=== PATIENT | male | born 1945 | race Caucasian/White ===

== ENCOUNTER 2024-08-07 11:00 | Emergency (ER) | payer MEDICARE, OTHER ==
[~2024-08-07] VITALS: Ht 170.2 cm; Wt 65.8 kg
--- NOTE | 2024-08-07 11:08 | NUR ---
PT TO CT WITH RN AT THIS TIME
--- NOTE | 2024-08-07 11:15 | NUR ---
PT BACK FROM CT AT THIS TIME, SOC NEUROLOGIST DR. PAINTER SPEAKING TO PT.
--- NOTE | 2024-08-07 11:23 | EKG ---
[facility] Test Date: 2024-08-07 Test Time: 11:20:37 Pat Name: DOT CHEUNG Department: ED Room: Gender: M [employer] Rep[employer]r: [id number] : 1945 Requested By: JUANCARLOS ARCOS Order Number: [id number] Reading MD: Manuelito Trammell Measurements Intervals [place] Rate: 80 P: 25 VT: 194 QRS: -61 QRSD: 94 T: 34 QT: 362 QTc: 419 Interpretive Statements Sinus rhythm Left anterior fascicular block Cannot exclude prior anterior CO No previous ECG available for comparison Electronically Signed On 08-08-2024 12:48:12 WINCH RUNNER by Manuelito Trammell Please click the below link to view image of tracing.
--- NOTE | 2024-08-07 11:23 | HMCIMG ---
CT HEAD WITHOUT CONTRAST INDICATION: Left upper arm weakness TECHNIQUE: Noncontrast axial helical CT images from the vertex through the skull base using 5 mm slice thickness without contrast material. Coronal and sagittal reconstructions were also included. Dose reduction techniques was used using integrated, automated and adaptive dose reduction exposure control. CT was performed with one or more of the following dose reduction techniques: Automated exposure control, adjustment of the mA and/or kV according to patient size, or use of iterative reconstruction technique. COMPARISON: None FINDINGS: Scattered and coalescent subcortical and periventricular white matter low attenuating areas likely represent residual of chronic small vessel arteriopathy and/or remote vascular insult. Chronic small right parietal lobe infarct. Generalized mild cerebral cortical atrophy is present.. No evidence for abnormal extra-axial fluid collections or masses. The ventricles and sulci are normal in size and configuration. No evidence for intracranial parenchymal, epidural, or subdural hemorrhage, mass effect or midline shift. The pennington-white matter differentiation is well preserved. No secondary evidence to suggest acute ischemia. Mild calcific plaque is present along the christensen of the cavernous segments of both internal carotid arteries. The brainstem and cerebellum appear normal. The visualized orbits appear unremarkable. The visible paranasal sinuses and mastoid air cells are clear. The calvarium appears normal. IMPRESSION: Chronic white matter ischemic changes, mild brain atrophy, and arteriosclerotic disease as described, without acute component.
--- NOTE | 2024-08-07 11:27 | ERN ---
General Chief Complaint: Numbness Stated Complaint: STROKE SYMPTOMS Time Seen by MD: 11:01 Source: patient, family History of Present Illness Initial Comments Patient is a 79-year-old gentleman coming in to be evaluated for left upper extremity weakness. Per patient he was outside walking his dog when he started having tingling to the left upper extremity and then became numb. He also states that he has experienced weakness in the left upper extremity as well. History of hypertension. Allergies: Coded Allergies: No Known Drug Allergies (Unverified Allergy, Unknown, 08/07/24) Past Medical History Past Medical History: Hypertension Past Surgical History: Tonsillectomy ROS Dictation CONSTITUTIONAL: No chills, no fever, no weakness, no diaphoresis, no malaise. HEAD/FACE: No signs of trauma. EENT: No eye pain, no blurred vision, no tearing, no double vision, no ear pain, no ear discharge, no nose pain, no nasal congestion, no throat pain, no throat swelling, no mouth pain. RESPIRATORY: No cough, no orthopnea, no SOB, no stridor, no wheezing. CARDIOVASCULAR: No chest pain, no edema, no palpitations, no syncope. GASTROINTESTINAL/ABDOMINAL: No abdominal pain, no constipation, no diarrhea, no nausea, no vomiting. GENITOURINARY: No abnormal discharge, no dysuria, no frequent urination, no hematuria. No complaints of pain in the genitals. MUSCULOSKELETAL: No back pain, no gout, no joint pain, no joint swelling, no muscle pain, no muscle stiffness, no neck pain. INTEGUMENTARY: No change in color, no change in hair/nails, no dryness, no lesion, no lumps, no rash. NEUROLOGICAL/PSYCH: No anxiety, not depressed, no emotional problem, no headache, no numbness, no pre-existing deficit, no history of seizures, no tremors, weakness. HEMATOLOGIC/LYMPHATIC: Not anemic, no history of blood clots, no apparent bleeding, no bruising, glands not swollen. All Systems Negative, Except as Noted. Physical Exam Physical Exam Dictation VITAL SIGNS: Reviewed. GENERAL APPEARANCE: Alert, oriented x3, no acute distress, obese. HEAD AND FACE: Non-traumatic. EYES: PERRL, pink conjunctivas, eyelid no trauma, anterior chamber clear. EARS: Pinnas intact and no signs of trauma or erythema. Ear canals clear and no discharge. TMs no erythema. NOSE: No discharge, no bleeding. OROPHARYNX: Mouth normal, teeth no caries, tongue pink. Pharynx clear, no erythema. Tonsils no exudates, no abscesses noted. Mucous membrane moist. NECK: Supple, non-tender, no thyromegaly, no masses, no JVD, no bruits. BREAST: Deferred. CHEST: No tenderness, no crepitus, no paradoxical movement, no retractions. LUNGS: Clear, well-ventilated, symmetric, no rales, no wheezing, no rhonchi, no stridor, good breath sounds bilaterally. HEART: Regular rate, regular rhythm, no murmur, no gallops. VASCULAR: No peripheral edema. ABDOMEN: Soft, positive bowel sounds, nondistended, no guarding, nontender, no rebound, no masses no hepatomegaly, no splenomegaly, no Singh's sign, no hernias. RECTAL: Deferred. GENITAL: Deferred. NEUROLOGICAL: Normal speech, gross motor function intact, gross sensory function intact. MUSCULOSKELETAL: Neck nontender, full range of motion, back nontender, full range of motion. EXTREMITIES: Nontender, full range of motion. Left upper extremity weakness SKIN: Color pink, dry, no turgor, no rash, no lacerations, no abrasions, no contusions. LYMPHATICS: Deferred. Results Laboratory and Microbiology Lab and Micro Result Laboratory Tests Test 08/07/24 11:06 08/07/24 11:21 Whole Blood Glucose 143 MG/DL (70-110) H White Blood Count 6.6 K/uL (4.8-10.8) Red Blood Count 4.98 MIL/uL (4.50-6.20) Hemoglobin 15.2 g/dL (14.0-18.0) Hematocrit 44.6 % (42-54) Mean Corpuscular Volume 89.6 fL (79-99) Mean Corpuscular Hemoglobin 30.5 pg (27.0-33.0) Mean Corpuscular Hemoglobin Concent 34.1 g/dL (32.0-36.0) Red Cell Distribution Width 12.8 % (11.0-15.5) Platelet Count 252 K/uL (130-400) Mean Platelet Volume 8.6 fL (7.5-10.5) Immature Granulocyte % (Auto) 0.2 % (0-1) Neutrophils (%) (Auto) 76.1 % (40.0-77.0) Lymphocytes (%) (Auto) 12.4 % (21.0-51.0) L Monocytes (%) (Auto) 9.3 % (3.0-13.0) Eosinophils (%) (Auto) 1.2 % (0.0-8.0) Basophils (%) (Auto) 0.8 % (0.0-5.0) Neutrophils # (Auto) 5.0 K/uL (1.8-7.7) Lymphocytes # (Auto) 0.8 K/uL (1.0-4.8) L Monocytes # (Auto) 0.6 K/uL (0.1-1.0) Eosinophils # (Auto) 0.08 K/uL (0.00-0.70) Basophils # (Auto) 0.05 K/uL (0.00-0.20) Absolute Immature Granulocyte (auto 0.01 K/uL (0-1) Nucleated Red Blood Cells 0.0 % (0.0-0.19) Prothrombin Time 10.3 SEC (9.6-11.6) Prothromb Time International Ratio 0.97 (0.85-1.15) Activated Partial Thromboplast Time 25.4 SEC (26.3-35.5) L Sodium Level 135 mmol/L (136-145) L Potassium Level 4.5 mmol/L (3.5-5.1) Chloride Level 100 mmol/L (101-111) L Carbon Dioxide Level 33 mmol/L (21-32) H Blood Urea Nitrogen 16 mg/dL (7-18) Creatinine 1.1 mg/dL (0.5-1.3) Glomerular Filtration Rate Calc 69 mL/min (>90) Random Glucose 121 mg/dL (70-105) H Total Calcium 9.0 mg/dL (8.5-10.1) Total Creatine Kinase 150 U/L (21-232) Troponin I High Sensitivity 6 ng/L (4-75) B-Type Natriuretic Peptide 39 pg/mL (0-100) LDL Cholesterol 83 mg/dL (0-99) Labs Reviewed?: Yes EKG/XRAY/US/CT/MRI EKG Comment 08/07/2024 time 11:20 a.m. Ventricular rate 80 Sinus rhythm DE [address] wave elevation or depression CT Scan Comment [facility] [address] [place], [place] [id number] IMAGING REPORT Signed PATIENT: DOT CHEUNG MR#: [id number] : 1945 SEX: M AGE: 79 LOCATION: [facility] ORDER 110 STATUS: REG ER REPORT#: [id number] SERVICE 03 REASON: left upper arm weakness ORDERING PHYSICIAN: JUANCARLOS ARCOS MD PROCEDURE: HEAD WO - CT HEAD/BRAIN W/O CONTRAST CT HEAD WITHOUT CONTRAST INDICATION: Left upper arm weakness TECHNIQUE: Noncontrast axial helical CT images from the vertex through the skull base using 5 mm slice thickness without contrast material. Coronal and sagittal reconstructions were also included. Dose reduction techniques was used using integrated, automated and adaptive dose reduction exposure control. CT was performed with one or more of the following dose reduction techniques: Automated exposure control, adjustment of the mA and/or kV according to patient size, or use of iterative reconstruction technique. COMPARISON: None FINDINGS: Scattered and coalescent subcortical and periventricular white matter low attenuating areas likely represent residual of chronic small vessel arteriopathy and/or remote vascular insult. Chronic small right parietal lobe infarct. Generalized mild cerebral cortical atrophy is present.. No evidence for abnormal extra-axial fluid collections or masses. The ventricles and sulci are normal in size and configuration. No evidence for intracranial parenchymal, epidural, or subdural hemorrhage, mass effect or midline shift. The pennington-white matter differentiation is well preserved. No secondary evidence to suggest acute ischemia. Mild calcific plaque is present along the christensen of the cavernous segments of both internal carotid arteries. The brainstem and cerebellum appear normal. The visualized orbits appear unremarkable. The visible paranasal sinuses and mastoid air cells are clear. The calvarium appears normal. IMPRESSION: Chronic white matter ischemic changes, mild brain atrophy, and arteriosclerotic disease as described, without acute component. DICTATED BY: CARLOS LYNCH MD DATE: 08/07/24 1119 ELECTRONICALLY SIGNED BY: CARLOS LYNCH MD DATE: 08/07/24 1123 [facility] MDM: Differential diagnosis: Left upper extremity weakness, TIA, CVA, Rationale: Tests considered and ordered secondary to shared decision making include: labs, ECG and radiology Previous outside records reviewed: Old ER visits. Risk of complication and/or morbidity or mortality of patient management: None Medications-Per medication reconciliation Need for hospitalization: Patient does meet criteria for hospitalization. Need for emergency major/minor surgery: No There are no social concerns with this patient. Prescription drug management Prescriptions will include symptomatic care Patient's prior external medical records from other ER visits were reviewed by me as indicated. Prior testing and results from previous visits were reviewed. Prior tests were taken into account with medical decision making and resource utilization, independent historian/historians were used to obtain complete medical history. I independently interpreted the test that were performed, results were reviewed by me and considered findings on radiology if ordered. Medical management and examination interpretation discussions were had by me with other qualified healthcare professionals as indicated for the patient's care. [facility] Course Orders Procedure Category Date Status Time Cbc With Differential LAB 08/07/24 Complete 11:04 Prothrombin Time With LAB 08/07/24 Complete INR 11:04 Partial LAB 08/07/24 Complete Thromboplastin Time 11:04 Ct Head/Brain W/O CT 08/07/24 Resulted Contrast 11:04 Chest 1vw RAD 08/07/24 Resulted 11:04 12 Lead Ekg Tracing- EKG 08/07/24 Complete Technical 11:04 Creatine Kinase, Total LAB 08/07/24 Complete 11:04 Ldl Direct LAB 08/07/24 Complete 11:04 Troponin I High LAB 08/07/24 Complete Sensitivity 11:04 Urinalysis Profile LAB 08/07/24 Logged 11:04 B-Type Natriuretic LAB 08/07/24 Complete Peptide 11:04 Bedside Glucose CPOE 08/07/24 Transmitted Fingerstick 11:04 Basic Metabolic Panel LAB 08/07/24 Complete 11:04 Vital Signs Date Time Temp Pulse Resp B/P (MAP) Pulse Ox O2 Delivery O2 Flow Rate FiO2 08/07/24 12:17 78 17 160/79 98 Room Air* 0 21 08/07/24 11:24 85 17 167/83 98 Room Air* 0 21 08/07/24 11:01 97.3 94 18 171/101 97 Room Air DX & DISP Disposition: Transfer Departure Impression: Primary Impression: TIA (transient ischemic attack) Additional Impression: CVA (cerebral vascular accident) Condition: Stable Referrals: SELF,REFERRAL (PCP) JUANCARLOS ARCOS MD Aug 07, 2024 11:27
[2024-08-07 11:28] LABS: BASOPHILS # (AUTO) 0.05 K/uL (0.00-0.20); BASOPHILS % (AUTO) 0.8 % (0.0-5.0); EOSINOPHILS # (AUTO) 0.08 K/uL (0.00-0.70); EOSINOPHILS % (AUTO) 1.2 % (0.0-8.0); HEMATOCRIT 44.6 % (42-54); IMMATURE GRANULOCYTE ABSOLUTE 0.01 K/uL (0-1); LYMPHOCYTES # (AUTO) 0.8 K/uL (1.0-4.8); LYMPHOCYTES % (AUTO) 12.4 % (21.0-51.0); MEAN CORPUSCULAR HEMOGLOBIN 30.5 pg (27.0-33.0); MEAN CORPUSCULAR HGB CONC 34.1 g/dL (32.0-36.0); MEAN CORPUSCULAR VOLUME 89.6 fL (79-99); MONOCYTES # (AUTO) 0.6 K/uL (0.1-1.0); MONOCYTES % (AUTO) 9.3 % (3.0-13.0); NEUTROPHILS % (AUTO) 76.1 % (40.0-77.0); PLATELET COUNT (AUTO) 252 K/uL (130-400); RED BLOOD CELL COUNT(AUTO) 4.98 MIL/uL (4.50-6.20); RED CELL DISTRIBUTION WIDTH 12.8 % (11.0-15.5); WHITE BLOOD COUNT (AUTO) 6.6 K/uL (4.8-10.8)
[2024-08-07 11:36] LABS: CREATININE 1.1 mg/dL (0.5-1.3); POTASSIUM 4.5 mmol/L (3.5-5.1)
[2024-08-07 11:47] LABS: B-TYPE NATRIURETIC PEPTIDE 39 pg/mL (0-100)
--- NOTE | 2024-08-07 11:55 | NUR ---
TRANSFER OUT FOR NEUROLOGY SERVICE . ROSALIA ANN
--- NOTE | 2024-08-07 11:58 | CONS ---
CONSULT NOTE: [place] [facility] Note # Demographics Consult Type: Acute Stroke Level 1 (0-4.5 hrs) Patient Location: Emergency Room First Name: DOT Last Name: SKYE Date of : 1945 Age: 79 Gender: Male Facility: [facility] Time of Initial Page (Central Time): 08/07/2024 11:14 Time of Return Call (Central Time): 08/07/2024 11:14 # HPI Chief Complaint: - weakness (focal) History: 79 y/o M went to walk the dog after playing pickleball when he developed tingling and weakness of the left arm. Symptoms started around 1 hour ago. Possible Thrombolytic candidate: - not on warfarin or NOACs - no intracranial hemorrhage history - no recent major surgery - no known active major internal bleeding # Scores Time of exam and NIHSS (Central Time): 08/07/2024 11:16 Level of Consciousness 1a: [0] = Alert; keenly responsive LOC Questions 1b: [0] = Answers both questions correctly LOC Commands 1c: [0] = Performs both tasks correctly Best Gaze 2: [0] = Normal Visual 3: [0] = No visual loss Facial Palsy 4: [0] = Normal symmetrical movements Motor Arm Left 5a: [1] = Drift Motor Arm Right 5b: [0] = No drift Motor Leg Left 6a: [0] = No drift Motor Leg Right 6b: [0] = No drift Limb Ataxia 7: [0] = Absent Sensory 8: [0] = Normal Best Language 9: [0] = No aphasia Dysarthria 10: [0] = Normal Extinction and Inattention 11: [0] = No abnormality NIHSS Total: 1 # Data Head CT: - no bleed - per radiologist read # Assessment Impression: - Ischemic Stroke (Acute) # Plan Thrombolytic/Intervention: NOT IV Thrombolysis or IA Intervention candidate Thrombolytic Exclusion (< 3 hour window): - non-disabling deficit Intraarterial Exclusion: - clinical exam not consistent with presence of large vessel occlusion (LVO), can reconsider if LVO found on vascular imaging Target Blood Pressure: SBP < 220 Labs: - hemoglobin A1c - lipid panel Imaging: (urgency: STAT): - CT Angiogram Head and CT Angiogram Neck AND call back with results if abnormal Imaging: (urgency: routine): - MRI Brain without contrast Diagnostic Test: - echo without bubble study Therapy/Evaluation: - PT/OT evaluation - speech/swallow consultation Medication: - Plavix 300 mg PO x1 now, then 75 mg daily x 21 days + asa 81mg x 21 days, followed by monotherapy thereafter Other: - If patient has any neurological deterioration please call me back immediately - LDL < 70 - permissive hypertension - telemetry monitoring - I have discussed my recommendations with the referring provider # Logistics Attestation of consult completion: The patient is located at: [facility]. Facility staff participated in the visit. I performed this telemedicine visit from my offsite office utilizing interactive 2 way audio and visual telecommunication technology. Total time spent in telemedicine encounter: I spent 20 minutes reviewing clinical data and/or imaging, obtaining history, examining the patient, communicating with the onsite care team, and in preparation of this report. # Demographics First Name: DOT Last Name: SKYE Facility: [facility] SHARONDA LOPEZ MD Aug 07, 2024 11:57
--- NOTE | 2024-08-07 12:10 | HMCIMG ---
PORTABLE CHEST RADIOGRAPH INDICATION: stroke COMPARISON: None FINDINGS: pvc monitor leads overlie the field of view. Heart size is normal. The pulmonary vascularity and left hilum appear normal. 2.6 cm right hilar nodular opacity could just represent normal central pulmonary vascularity. No significant pleural effusion noted. No pneumothorax detected. IMPRESSION: 2.6 cm right hilar nodular opacity could just represent normal central pulmonary vascularity. Nonemergent outpatient CT imaging of the chest can be obtained for further evaluation comment not already performed. Otherwise, no radiographic evidence for any acute cardiopulmonary process.
--- NOTE | 2024-08-07 12:17 | NUR ---
TRANSFER CALL PLACE TO [facility] [phone] SPOKE WITH RAISSA INTAKE NURSE INFORMATION PROVIDED AND WILL CALL BACK. ROSALIA ANN
[2024-08-07 12:18] LABS: INR 0.97 (0.85-1.15); PROTHROMBIN TIME 10.3 SEC (9.6-11.6)
[2024-08-07 12:19] LABS: PARTIAL THROMBOPLASTIN TIME 25.4 SEC (26.3-35.5)
--- NOTE | 2024-08-07 12:29 | NUR ---
TRANSFER CALL RECEIVED FROM TRANSFER CENTER RAISSA WITH ACCEPTANCE UNDER DOCTOR WINNIE MEAD TO ER AND PRIMARY NURSE TO CALL REPORT TO [phone] AND EMS. ROSALIA ANN
--- NOTE | 2024-08-07 12:59 | NUR ---
SPOKE TO MARISSA RAMIREZ WITH [facility] FOR REPORT.
--- NOTE | 2024-08-07 13:02 | NUR ---
[facility]ED [facility]
[2024-08-07 13:03] VITALS: BP 169/84; PULSE 84; RESP 17; TEMP 97.5; O2SAT 97
--- NOTE | 2024-08-07 13:32 | NUR ---
[facility] BY TO [facility] [employer] PT.
[2024-08-07 13:35] LABS: ADD UA MICROSCOPIC NO; APPEARANCE,URINE CLEAR (CLEAR); BILIRUBIN,URINE NEGATIVE (NEGATIVE); COLOR,URINE LIGHT-YELLOW (YELLOW); GLUCOSE, URINE (UA) NEGATIVE (NEGATIVE); KETONES,URINE NEGATIVE (NEGATIVE); LEUKOCYTE ESTERASE ,URINE NEGATIVE Leu/uL (NEGATIVE); NITRATE,URINE NEGATIVE (NEGATIVE); OCCULT BLOOD,URINE NEGATIVE (NEGATIVE); PROTEIN,URINE NEGATIVE (NEGATIVE); UROBILINOGEN,URINE 0.2 mg/dL (0.2-1.0)
== END 2024-08-07 13:33 | disposition short-term general hospital (02) ==
LOC: EDH 11:00
DX: G45.9 Transient cerebral ischemic attack, unspecified (principal); I63.9 Cerebral infarction, unspecified; I10 Essential (primary) hypertension; Z79.02 Long term (current) use of antithrombotics/antiplatelets; Z90.89 Acquired absence of other organs
CPT/HCPCS: 36415; 70450; 71045; 80048; 81003; 82550; 82948; 83721; 83880; 84484; 85025; 85610; 85730; 93005; 99285